=== PATIENT | female | born 2000 | race Caucasian/White ===

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

== ENCOUNTER 2022-03-20 15:22 | Emergency (ER) | payer OTHER ==
[~2022-03-20] VITALS: Ht 157.5 cm; Wt 40.9 kg
[2022-03-20 15:31] VITALS: BP 128/62
--- NOTE | 2022-03-20 15:34 | NUR ---
AMBULATED TO ER BED 10
--- NOTE | 2022-03-20 15:47 | NUR ---
PT C/O SUBSTERNAL CP PAIN WITH NAUSEA AND DIZZINESS X1 MONTH, PROGRESSIVELY WORSE THIS WEEK. NSR ON MONITOR. PENDING ER MD PINO.
[2022-03-20] MEDS ORDERED: ONDA8TAB87 PO (16:11)
[2022-03-20] MEDS ORDERED: OMEP40EC24 PO (16:11)
[2022-03-20] MEDS ORDERED: IBUP-1842 PO (16:11)
--- NOTE | 2022-03-20 18:01 | NUR ---
PT UP FOR D/C BY DR ENAMORADO, NOT FOUND IN LOBBY/OUTSIDE. RX OF MOTRIN, PRILOSEC AND ZOFRAN SENT TO PTS PHARM[facility]Y.
== END 2022-03-20 18:01 | disposition home or self-care (01) ==
LOC: MED 15:22
DX: K21.9 Gastro-esophageal reflux disease without esophagitis (principal); R07.89 Other chest pain; R06.02 Shortness of breath
CPT/HCPCS: 93005; 99283